=== PATIENT | female | born 1965 | race Caucasian/White ===

== ENCOUNTER 2017-05-28 22:00 | Emergency (ER) | payer OTHER ==
[2017-05-28 22:18] VITALS: BP 160/93; TEMP 98.2; O2SAT 96
--- NOTE | 2017-05-28 23:07 | RAD ---
EXAM: Two view(s) of the right tibia-fibula. INDICATION: Pain. COMPARISON: None. FINDINGS: No acute fracture or dislocation. There are changes of prior ACL repair. No large soft tissue swelling. IMPRESSION: 1. No acute fracture. Electronically signed by: Agustin Nguyen MD 05/28/2017 11:07 PM CDT Workstation: [id number]
--- NOTE | 2017-05-28 23:36 | ED.PDOC ---
History of Present Illness - General Chief Complaint: Lower Extremity Injury Stated Complaint: rt lower leg injury Time Seen by Provider: 05/28/17 23:29 Source: patient, RN notes reviewed, Vital Signs reviewed Exam Limitations: no limitations - History of Present Illness Initial Comments: Shelley Sanches 51 y/o female stated while walking thru the wooden board walkway it broke and right leg went thru and squeeze in between had bruising nad swelling after the incident. Occurred: just prior to arrival Pain - Lower Extremity: moderate: Right Leg Method of Injury: fell Improving Factors: rest Worsening Factors: movement Allergies/Adverse Reactions: Allergies NO KNOWN ALLERGY Allergy (Verified 05/24/15 11:57) Home Medications: Ambulatory Orders Lisinopril [Prinivil] 10 mg PO DAILY 05/24/15 Review of Systems - Review of Systems Constitutional: States: no symptoms reported EENTM: States: no symptoms reported Respiratory: States: no symptoms reported Cardiology: States: no symptoms reported Gastrointestinal/Abdominal: States: no symptoms reported Genitourinary: States: no symptoms reported Musculoskeletal: States: see HPI Skin: States: no symptoms reported Neurological: States: no symptoms reported Endocrine: States: no symptoms reported Hematologic/Lymphatic: States: no symptoms reported Past Medical History (General) - Patient Medical History Hx Asthma: Yes Hx of COPD: No Hx Hypertension: Yes Hx Gastroesophageal Reflux: Yes Hx Cancer: No Surgical History: other - right knee,uterine ablation - Vaccination History Hx Tetanus, Diphtheria Vaccination: Yes - Social History Hx Alcohol Use: Yes Hx Substance Use: No Feels Threatened In a Relationship: No Hx Physical Abuse: No Hx Emotional Abuse: No Hx Suspected Abuse: No - Female History Patient : No Family Medical History - Family History Mother Family History: No Known Physical Exam - Physical Exam General Appearance: Alert, Comfortable, No apparent distress Eyes, Ears, Nose, Throat: PERRL/EOMI, normal ENT inspection, TMs normal, pharynx normal Neck: non-tender, full range of motion, supple Cardiovascular/Respiratory: regular rate, rhythm, no M/R/G, normal peripheral pulses, no JVD, normal breath sounds Gastrointestinal/Abdominal: non-tender, no organomegaly Back: normal inspection, no CVA tenderness, no vertebral tenderness Thigh/Hip: normal inspection, non-tender, no evidence of injury Leg: normal ROM, ecchymosis - mid third right leg, soft tissue tenderness - mid third right leg Knee: normal inspection, no evidence of injury Ankle: normal inspection, no evidence of injury Foot: normal inspection, no evidence of injury Neuro/Tendon: normal motor functions, normal tendon functions Mental Status: alert, oriented x 3 Skin: normal color, warm/dry Progress - EKG/XRAY/CT XRAY: leg - right no fracture/radiologist Departure - Departure Clinical Impression: Fall down steps Qualifiers: Encounter type: initial encounter Qualified Code(s): W10.8XXA - Fall (on) (from ) other stairs and steps, initial encounter Traumatic ecchymosis of right lower leg Qualifiers: Encounter type: initial encounter Qualified Code(s): S80.11XA - Contusion of right lower leg, initial encounter Time of Disposition: 23:50 Disposition: Discharge to Home or Self Care Condition: Good Departure Forms: ED Discharge - Pt. Copy, Patient Portal Self Enrollment Home Medications: Ambulatory Orders Lisinopril [Prinivil] 10 mg PO DAILY 05/24/15 Additional Instructions: Continue with ice pack 20 minutes 3 x a day during waking hours only until better;Elevate right leg 20 degrees at bedtime;follow up with primary md 06/10 call for appointment;Aleve (over the counter) one tablet 2-3x a day as needed for pain
[2017-05-28] MEDS ORDERED: NEOMYCIN-BACITRACIN-POLYMYXIN 0.9 GM UD TOP ONE (23:45)
== END 2017-05-29 00:07 | disposition home or self-care (01) ==
LOC: ER 22:00
DX: S80.11XA Contusion of right lower leg, initial encounter (principal); J45.909 Unspecified asthma, uncomplicated; I10 Essential (primary) hypertension; K21.9 Gastro-esophageal reflux disease without esophagitis; W17.89XA Other fall from one level to another, initial encounter; Y92.89 Other specified places as the place of occurrence of the external cause